=== PATIENT | male | born 1965 | race Caucasian/White ===

== ENCOUNTER 2016-06-27 10:50 | Emergency (ER) | payer MEDICAID ==
[2016-06-27] MEDS ORDERED: ONDANSETRON HCL IV 4 MG/2 ML VIAL IV ONE (11:09)
[2016-06-27] MEDS ORDERED: 0.9 % SODIUM CHLORIDE 1,000 ML BAG IV ONE (11:09)
--- NOTE | 2016-06-27 11:09 | Emergency Department Record ---
History of Present Illness - General Chief complaint: Nausea, Vomiting, Diarrhea Stated complaint: DIZZY,NAUSEA/DIARRHEA Time Seen by Provider: 06/27/16 11:02 Source: Patient Mode of Arrival: Ambulatory Limitations: No limitations - History of Present Illness Initial comments: 50 yo male presents with diarrhea 4 times since 5pm yesterday and now vomiting about 4 times since very early this morning. No fevers. No blood in either. He has some cramps that come and go. No flank pain or hematuria. No cough.. The last diarrhea was at 9am and the last vomiting was just prior to arrival. No recent travel, antibiotics or sick exposures that he is aware of at this time. MD complaint: Diarrhea, Nausea, Vomiting, Other (dizziness) Description of Vomiting: Watery Description of Diarrhea: Water Associated Abdominal Pain: Yes (cramps at times) Location: Diffuse Radiation: None Severity: Moderate Quality: Cramping Consistency: Intermittent Improves with: None Worsens with: Eating Associated Symptoms: Loss of appetite - Related Data Previous Rx's Medication Instructions Recorded Ondansetron [Zofran Odt] 4 mg PO Q8H #15 tab.rapdis 06/27/16 Allergies Allergy/AdvReac Type Severity Reaction Status Date / Time polyethylene glycol 3350 Allergy Severe ANAPHYLAXIS Verified 06/27/16 10:57 [From Miral[employer]] Review of Systems Constitutional: Denies: Chills, Fever, Malaise, Night sweats, Weakness Eyes: Denies: Eye discharge, Eye pain, Photophobia ENT: Denies: Congestion, Throat pain Respiratory: Denies: Cough, Dyspnea, Hemoptysis, Stridor Cardiovascular: Denies: Chest pain, Palpitations, Syncope Endocrine: Reports: Fatigue Gastrointestinal: Reports: Abdominal pain (cramps), Diarrhea, Nausea, Vomiting. Denies: Constipation, Hematemesis, Hematochezia, Melena Genitourinary: Denies: Dysuria, Frequency, Hematuria Musculoskeletal: Denies: Arthralgia, Back pain, Neck pain Skin: Denies: Bruising, Change in color, Rash Neurological: Denies: Confusion, Headache Psychiatric: Denies: Anxiety Hematological/Lymphatic: Denies: Blood Clots, Easy bleeding, Easy bruising, Swollen glands Past Medical History - SOCIAL HISTORY Smoking Status: Former smoker Drug Use Detail:: Marijuana - RESPIRATORY Hx Respiratory Disorders: No - CARDIOVASCULAR Hx Cardio Disorders: No - NEURO Hx Neuro Disorders: No - GI Hx GI Disorders: Yes Hx Abdominal Pain: Yes (20+ years) Hx Diverticulitis: Yes - Hx Genitourinary Disorders: No Hx Kidney Stones: Yes - ENDOCRINE Hx Endocrine Disorders: No Hx Diabetes: No Hx Thyroid Disease: No - MUSCULOSKELETAL Hx Musculoskeletal Disorders: No Hx Arthritis: (Having some trouble with R knuckle pain for aprox 6 months) - PSYCH Hx Psych Problems: No Hx Anxiety: Yes Hx Depression: Yes Comment:: "I think I have PTSD" - HEMATOLOGY/ONCOLOGY Hx Hematology/Oncology Disorders: No Family Medical History Family Hx Comment (NOT TO BE USED IN PLACE OF ITEMS BELOW): IBS Hx Cancer: Grandparents Hx Heart Disease: Mother, Grandparents Physical Exam - General General Appearance: Alert, Oriented x3, Cooperative, No acute distress Limitations: No limitations - Head Head exam: Normal inspection - Eye Eye exam: Normal appearance, PERRL. negative: Conjunctival injection, Periorbital swelling, Scleral icterus - ENT ENT exam: Mucous membranes dry, Normal orophraynx Ear exam: Normal external inspection Nasal Exam: Normal inspection Mouth exam: Normal external inspection, Tongue normal Teeth exam: Normal inspection. negative: Dental caries Throat exam: Normal inspection. negative: Tonsillar erythema, Tonsillar exudate - Neck Neck exam: Normal inspection, Full ROM. negative: Tenderness - Respiratory Respiratory exam: Normal lung sounds bilaterally. negative: Respiratory distress - Cardiovascular Cardiovascular Exam: Regular rate, Normal rhythm, Normal heart sounds - GI/Abdominal GI/Abdominal exam: Soft. negative: Diminished bowel sounds, Distended, Guarding , Rebound, Tenderness - Rectal Rectal exam: Deferred - exam: Deferred - Extremities Extremities exam: Normal inspection, Full ROM, Normal capillary refill. negative: Tenderness - Back Back exam: Reports: Normal inspection, Full ROM. Denies: Muscle spasm, Rash noted, Tenderness - Neurological Neurological exam: Alert, Normal gait, Oriented X3 - Psychiatric Psychiatric exam: Normal affect, Normal mood. negative: Anxious, Depressed - Skin Skin exam: Dry, Intact, Normal color, Warm Course - Reevaluation(s) Reevaluation #1: The labs were reviewed The CBC demonstrated WBC of 13 No acute changes to the CMP or Lipase His nausea is much better. No vomiting or diarrhea. He feels a little "achey" and requests ice chips. 06/27/16 11:50 Reevaluation #2: No vomiting or diarrhea His symptoms are well controlled His abdomen is very soft and non tender to deep palpation We discussed DC home, liquids, rest and return for recheck if any symptoms return He is to call his PCP Wednesday otherwise. 06/27/16 12:40 Medical Decision Making - Lab Data Result diagrams: 06/27/16 11:22 06/27/16 11:20 Disposition Disposition: Discharge Clinical Impression: Vomiting and diarrhea Disposition: Home, Self-Care Condition: (1) Good Instructions: Acute Nausea and Vomiting (ED), Acute Diarrhea (ED) Additional Instructions: Rest Stay well hydrated Zofran every 4 hours as needed for nausea Call your doctor on Wednesday for close follow up Return if worse, pain, uncontrolled vomiting or diarrhea over the week if any concerns. Prescriptions: Ondansetron [Zofran Odt] 4 mg PO Q8H #15 tab.rapdis Forms: Patient Portal Access Time of Disposition: 12:42
[2016-06-27 11:24] LABS: HEMATOCRIT 50.2 % (42.0-52.0); HEMOGLOBIN 16.5 gm/dl (14.0-18.0); MEAN CELL VOLUME 90.1 fl (81-97); MEAN CORPUSCULAR HEMOGLOBIN 29.6 pg (27-33); MEAN CORPUSCULAR HGB CONC 32.9 g/dl (32-36); MEAN PLATELET VOLUME 9.5 fl (7.4-10.4); PLATELET COUNT 363 K/uL (130-400); RED BLOOD COUNT 5.57 M/uL (4.40-5.70); RED CELL DISTRIBUTION WIDTH 13.4 % (11.5-14.5); WHITE BLOOD COUNT W/O DIFF 13.1 K/uL (4.2-12.2)
[2016-06-27 11:41] LABS: ALBUMIN 4.4 gm/dL (3.5-5.0); ALKALINE PHOSPHATASE 83 U/L (38-126); ALT/SGPT 41 U/L (21-72); AST/SGOT 22 U/L (17-59); BILIRUBIN,TOTAL 0.43 mg/dL (0.2-1.3); BLOOD UREA NITROGEN 19 mg/dL (9-20); CREATININE 0.9 mg/dL (0.66-1.25); EST GLOMERULAR FILTRATION RATE > 60 ml/min; GLUCOSE,RANDOM 146 mg/dL (70-110); LIPASE 90 U/L (23-300); TOTAL PROTEIN 7.4 gm/dL (6.3-8.2)
[2016-06-27] MEDS ORDERED: ACETAMINOPHEN 1,000 MG in SODIUM CHLORIDE 1 BAG IVPB ONE (11:49)
[2016-06-27] MEDS ORDERED: ONDANSETRON HCL IV 4 MG/2 ML VIAL IVP ONE (12:00)
[2016-06-27] MEDS ORDERED: PROMETHAZINE HCL 25 MG TABLET PO ONE (12:41)
[2016-06-27] MEDS ORDERED: ONDANSETRON 4 MG ODT TABLET SL ONE (12:41)
[2016-06-27 12:57] LABS: ANION GAP 12.5 (7-16); CARBON DIOXIDE 23.5 mmol/L (22-30)
== END 2016-06-27 12:50 | disposition home or self-care (01) ==
LOC: ER 10:50
DX: R11.2 Nausea with vomiting, unspecified (principal); R19.7 Diarrhea, unspecified
CPT/HCPCS: 99284 ×2; 96376; 96365; 96375; 96361; 83690; 80076; 80048; 85027; J2405; J7030; Q0170

== ENCOUNTER 2016-08-27 23:01 | Emergency (ER) | payer MEDICAID ==
[2016-08-27] MEDS ORDERED: KETOROLAC 30 MG/ML VIAL IVP ONE (23:24)
[2016-08-27] MEDS ORDERED: ONDANSETRON HCL IV 4 MG/2 ML VIAL IVP ONE (23:24)
--- NOTE | 2016-08-27 23:27 | Emergency Department Record ---
History of Present Illness - General Chief Complaint: Back Pain/Injury Stated Complaint: ABD PAIN,LOWER BACK PAIN Time Seen by Provider: 08/27/16 23:24 Source: Patient Mode of Arrival: Ambulatory Limitations: No limitations - History of Present Illness Initial Comments: 50 yo male presents to ED with a CC of right sided flank pain that began approximately 7 hours prior to arrival, intermittent in nature, and associated with nausea and vomiting symptoms. Patient denies fevers, chills, or recent illness, but reports similar symptoms with kidney stones previously. MD Complaint: Back pain Onset/Timin -: Hour(s) Similar Symptoms Previously: Yes Radiation: Abdomen Severity scale (1-10): 8 Quality: Sharp Consistency: Intermittent Improves With: None Context: History of kidney stones Associated Symptoms: Nausea/vomiting - Related Data Previous Rx's Medication Instructions Recorded Hydrocodone/Acetaminophen [[place] 1 tab PO Q6H PRN #15 tab 08/28/16 5mg/325mg] Tamsulosin HCl [Flomax] 0.4 mg PO DAILY #15 cap.er.24h 08/28/16 Allergies Allergy/AdvReac Type Severity Reaction Status Date / Time polyethylene glycol 3350 Allergy Severe ANAPHYLAXIS Verified 06/27/16 10:57 [From [employer]] Travel Screening - Travel/Exposure Within Last 30 Days Have you traveled within the last 30 days?: No - Travel Symptoms Symptom Screening: None Review of Systems Constitutional: Denies: Chills, Fever, Malaise, Night sweats Eyes: Denies: Eye discharge, Eye pain ENT: Denies: Congestion, Ear pain, Epistaxis Respiratory: Denies: Cough, Dyspnea Cardiovascular: Denies: Chest pain, Dyspnea on exertion Endocrine: Denies: Fatigue, Heat or cold intolerance Gastrointestinal: Reports: Abdominal pain. Denies: Nausea, Vomiting Genitourinary: Reports: Testicular pain. Denies: Hematuria, Incontinence, Retention Musculoskeletal: Reports: Back pain (right sided flank pain, radiates to the right testicle). Denies: Gout, Joint swelling Skin: Denies: Bruising, Change in color, Change in hair/nails, Rash Neurological: Denies: Abnormal gait, Confusion, Headache, Seizure Psychiatric: Denies: Anxiety Hematological/Lymphatic: Denies: Anemia, Blood Clots Past Medical History - SOCIAL HISTORY Smoking Status: Former smoker - RESPIRATORY Hx Respiratory Disorders: No - CARDIOVASCULAR Hx Cardio Disorders: No - NEURO Hx Neuro Disorders: No - GI Hx GI Disorders: Yes Hx Abdominal Pain: Yes (20+ years) Hx Diverticulitis: Yes - Hx Genitourinary Disorders: Yes Hx Kidney Stones: Yes - ENDOCRINE Hx Endocrine Disorders: No Hx Diabetes: No Hx Thyroid Disease: No - MUSCULOSKELETAL Hx Musculoskeletal Disorders: No Hx Arthritis: (Having some trouble with R knuckle pain for aprox 6 months) - PSYCH Hx Psych Problems: Yes Hx Anxiety: Yes Hx Depression: Yes Comment:: "I think I have PTSD" - HEMATOLOGY/ONCOLOGY Hx Hematology/Oncology Disorders: No Family Medical History Any Significant Family History?: Yes Family Hx Comment (NOT TO BE USED IN PLACE OF ITEMS BELOW): IBS Hx Cancer: Grandparents Hx Heart Disease: Mother, Grandparents Physical Exam - General General Appearance: Alert, Oriented x3, Cooperative, Moderate distress Limitations: No limitations - Head Head exam: Atraumatic, Normocephalic, Normal inspection Head exam detail: negative: Abrasion, Contusion, Costello's sign, General tenderness, Hematoma, Laceration - Eye Eye exam: Normal appearance. negative: Conjunctival injection, Periorbital swelling, Periorbital tenderness, Scleral icterus - ENT Ear exam: negative: Auricular hematoma, Auricular trauma Nasal Exam: negative: Active bleeding, Discharge, Dried blood Mouth exam: Tongue normal. negative: Drooling, Laceration, Tongue elevation - Neck Neck exam: Normal inspection. negative: Meningismus, Tenderness - Respiratory Respiratory exam: Normal lung sounds bilaterally. negative: Rales, Respiratory distress, Rhonchi, Stridor - Cardiovascular Cardiovascular Exam: Regular rate, Normal rhythm, Normal heart sounds - GI/Abdominal GI/Abdominal exam: Soft, Tenderness (TTP right lower quadrant). negative: Rebound, Rigid - Rectal Rectal exam: Deferred - exam: Deferred - Extremities Extremities exam: Normal inspection. negative: Calf tenderness, Pedal edema, Tenderness - Back Back exam: Reports: Other (no significant CVA tenderness on examination). Denies: CVA tenderness (R), CVA tenderness (L) - Neurological Neurological exam: Alert, Normal gait, Oriented X3 - Psychiatric Psychiatric exam: Normal affect, Normal mood - Skin Skin exam: Normal color. negative: Abrasion Type of lesion: negative: abrasion Course Vital Signs 08/27/16 23:09 Temperature 98.4 F Pulse Rate [ 53 L Pulse Ox Probe] Respiratory 16 Rate Blood Pressure 163/104 [Left Arm] Pulse Ox 96 - Reevaluation(s) Reevaluation #1: 08/27/16 23:59 Labs reviewed, BUN 23/Creatinine 1.3. Labs are otherwise grossly unremarkable for an acute process. Reevaluation #2: 08/28/16 00:15 CT Abdomen and Pelvis: mild right hydroneprosis, 4 mm calculus right ureter Reevaluation #3: 08/28/16 00:27 Patient reassessed, reports that his pain symptoms are much improved. UA sent to lab, will reassess. Reevaluation #4: 08/28/16 00:37 UA appears negative except for blood. Patient appears stable for discharge at this time. Medical Decision Making - Lab Data Result diagrams: 08/27/16 23:18 08/27/16 23:18 Disposition Disposition: Discharge Clinical Impression: Kidney stone on right side Disposition: Home, Self-Care Condition: (2) Stable Instructions: Kidney Stones (ED) Additional Instructions: Return to ED if your symptoms worsen or if you have any concerns. [place] and Flomax as directed. Follow-up with Dr. Mora in the [facility] next Wednesday. Prescriptions: Tamsulosin HCl [Flomax] 0.4 mg PO DAILY #15 cap.er.24h Hydrocodone/Acetaminophen [[place] 5mg/325mg] 1 tab PO Q6H PRN #15 tab PRN Reason: Pain - General Referrals: GAYLA RAMIREZ M.D. [MEDICAL DOCTOR] - [facility] [Provider Group] Forms: Patient Portal Access Time of Disposition: 00:38
[2016-08-27] MEDS ORDERED: 0.9 % SODIUM CHLORIDE 1000ML 1,000 ML IV SCH (23:30)
[2016-08-27 23:33] LABS: BASO % 0.3 % (0-6); EOS % 1.8 % (0-6); GRAN % 72.1 % (47-80); HEMATOCRIT 47.6 % (42.0-52.0); HEMOGLOBIN 15.3 gm/dl (14.0-18.0); LYMPH % 17.9 % (16-45); MEAN CELL VOLUME 91.4 fl (81-97); MEAN CORPUSCULAR HEMOGLOBIN 29.4 pg (27-33); MEAN CORPUSCULAR HGB CONC 32.1 g/dl (32-36); MEAN PLATELET VOLUME 9.6 fl (7.4-10.4); MONO % 7.9 % (0-9); PLATELET COUNT 306 K/uL (130-400); RED BLOOD COUNT 5.21 M/uL (4.40-5.70); RED CELL DISTRIBUTION WIDTH 13.3 % (11.5-14.5); WHITE BLOOD COUNT W/O DIFF 11.9 K/uL (4.2-12.2)
[2016-08-27 23:44] LABS: ALB/GLOB RATIO 1.4 (1.1-1.8); ALBUMIN 3.9 gm/dL (3.5-5.0); ALKALINE PHOSPHATASE 68 U/L (38-126); ALT/SGPT 37 U/L (21-72); ANION GAP 9.1 (7-16); AST/SGOT 23 U/L (17-59); BILIRUBIN,TOTAL 0.27 mg/dL (0.2-1.3); BLOOD UREA NITROGEN 23 mg/dL (9-20); CARBON DIOXIDE 24.9 mmol/L (22-30); CREATININE 1.3 mg/dL (0.66-1.25); EST GLOMERULAR FILTRATION RATE > 60 ml/min; GLUCOSE,RANDOM 130 mg/dL (70-110); TOTAL PROTEIN 6.7 gm/dL (6.3-8.2)
[2016-08-28] MEDS ORDERED: ONDANSETRON HCL IV 4 MG/2 ML VIAL IVP ONE (00:04)
[2016-08-28 00:27] LABS: URINE APPEARANCE SL CLOUDY; URINE BILIRUBIN NEGATIVE (NEGATIVE); URINE BLOOD LARGE (NEGATIVE); URINE COLOR YELLOW; URINE GLUCOSE (UA) NEGATIVE (NEGATIVE); URINE KETONE NEGATIVE (NEGATIVE); URINE LEUKOCYTE ESTERASE NEGATIVE (NEGATIVE); URINE NITRITE NEGATIVE (NEGATIVE); URINE PROTEIN TRACE (NEGATIVE); URINE UROBILINOGEN 0.2 E.U./dL (0.20 - 1.00)
[2016-08-28 00:41] LABS: URINE CALCIUM OXALATE CRYSTALS 3+ /hpf; URINE EPITHELIAL CELLS 0 - 2 (FEW); URINE WBC 0 - 2 (0-2/hpf)
[2016-08-28] MEDS ORDERED: HYDROCODONE/APAP 5/325MG TABLET PO ONE (00:41)
[2016-08-28] MEDS ORDERED: ONDANSETRON 4 MG ODT TABLET SL ONE (01:00)
== END 2016-08-28 01:08 | disposition home or self-care (01) ==
LOC: ER 23:01
DX: N13.2 Hydronephrosis with renal and ureteral calculous obstruction (principal); R11.2 Nausea with vomiting, unspecified; Z87.442 Personal history of urinary calculi
CPT/HCPCS: 99284 ×2; 96376; 96374; 96375; 96361; 85025; 80053; 81001; 74176; J1885; J2405 ×2; J7030

== ENCOUNTER 2017-04-05 05:54 | Emergency (ER) | payer MEDICAID ==
[2017-04-05] MEDS ORDERED: ONDANSETRON HCL IV 4 MG/2 ML VIAL IVP ONE ×2 (06:11→07:56)
[2017-04-05] MEDS ORDERED: 0.9 % SODIUM CHLORIDE 1,000 ML BAG IV ONE (06:11)
[2017-04-05] MEDS ORDERED: HYOSCYAMINE SULFATE ODT 0.125 MG TAB.SUBL SL ONE (06:12)
--- NOTE | 2017-04-05 06:17 | Emergency Department Record ---
History of Present Illness - General Chief Complaint: Abdominal Pain Stated Complaint: ABDOMINAL PAIN Time Seen by Provider: 04/05/17 06:12 Source: Patient Mode of Arrival: Ambulatory Limitations: No limitations - History of Present Illness Initial Comments: 51 yo male presents to ED for evaluation of abdominal pain, chills, and alternation in chills and hot flashes that began 5 hours ago. Patient reports vomiting x 1, denies change in stools. Patient reports a history of diverticulitis, denies previous abdominal pain surgery. Patient denies fever symptoms. MD Complaint: Abdominal pain Onset/Timin -: Hour(s) Location: Periumbilical Radiation: None Migration to: No migration Severity: Mild Consistency: Intermittent Improves With: Nothing Worsens With: Nothing Associated Symptoms: Chills, Nausea, Vomiting - Related Data Previous Rx's Medication Instructions Recorded Ciprofloxacin HCl [Cipro] 500 mg PO Q12HR #19 tablet 04/05/17 Metronidazole [Flagyl] 500 mg PO TID #29 tablet 04/05/17 Allergies Allergy/AdvReac Type Severity Reaction Status Date / Time polyethylene glycol 3350 Allergy Severe ANAPHYLAXIS Verified 04/05/17 06:00 [From [email or web address]] Travel Screening - Travel/Exposure Within Last 30 Days Have you traveled within the last 30 days?: No - Travel/Exposure Within Last Year Have you traveled outside the [place] in the last year?: No - Additonal Travel Details Have you been exposed to anyone with a communicable illness?: No - Travel Symptoms Symptom Screening: None Review of Systems Constitutional: Reports: Chills. Denies: Fever, Malaise, Night sweats Eyes: Denies: Eye discharge, Eye pain ENT: Denies: Congestion, Ear pain, Epistaxis Respiratory: Denies: Cough, Dyspnea Cardiovascular: Denies: Chest pain, Dyspnea on exertion Endocrine: Denies: Fatigue, Heat or cold intolerance Gastrointestinal: Reports: Abdominal pain, Nausea, Vomiting (x 1). Denies: Constipation Genitourinary: Denies: Incontinence, Retention Musculoskeletal: Denies: Arthralgia, Back pain, Gout, Joint swelling Skin: Denies: Bruising, Change in color Neurological: Denies: Abnormal gait, Confusion, Headache, Seizure Psychiatric: Denies: Anxiety Hematological/Lymphatic: Denies: Anemia, Blood Clots Past Medical History - SOCIAL HISTORY Smoking Status: Former smoker Alcohol Use: None Drug Use: None - RESPIRATORY Hx Respiratory Disorders: No - CARDIOVASCULAR Hx Cardio Disorders: No - NEURO Hx Neuro Disorders: No - GI Hx GI Disorders: Yes Hx Abdominal Pain: Yes (20+ years) Hx Diverticulitis: Yes - Hx Genitourinary Disorders: Yes Hx Kidney Stones: Yes - ENDOCRINE Hx Endocrine Disorders: No Hx Diabetes: No Hx Thyroid Disease: No - MUSCULOSKELETAL Hx Musculoskeletal Disorders: Yes Hx Arthritis: (Having some trouble with R knuckle pain for aprox 6 months) - PSYCH Hx Psych Problems: Yes Hx Anxiety: Yes Hx Depression: Yes Comment:: "I think I have PTSD" - HEMATOLOGY/ONCOLOGY Hx Hematology/Oncology Disorders: No Family Medical History Any Significant Family History?: No Family Hx Comment (NOT TO BE USED IN PLACE OF ITEMS BELOW): IBS Hx Cancer: Grandparents Hx Heart Disease: Mother, Grandparents Physical Exam - General General Appearance: Alert, Oriented x3, Cooperative, Mild distress Limitations: No limitations - Head Head exam: Atraumatic, Normocephalic, Normal inspection Head exam detail: negative: Abrasion, Contusion, Costello's sign, General tenderness, Hematoma, Laceration - Eye Eye exam: Normal appearance. negative: Conjunctival injection, Periorbital swelling, Periorbital tenderness, Scleral icterus - ENT Ear exam: negative: Auricular hematoma, Auricular trauma Nasal Exam: negative: Active bleeding, Discharge, Dried blood, Foreign body Mouth exam: negative: Drooling, Laceration, Tongue elevation - Neck Neck exam: Normal inspection. negative: Meningismus, Tenderness - Respiratory Respiratory exam: Normal lung sounds bilaterally. negative: Rales, Respiratory distress, Rhonchi, Stridor - Cardiovascular Cardiovascular Exam: Regular rate, Normal rhythm, Normal heart sounds - GI/Abdominal GI/Abdominal exam: Soft, Tenderness (MIld TTP suprapubic region, no rebound, guarding, or peritoneal signs on examination.). negative: Rebound, Rigid - Rectal Rectal exam: Deferred - exam: Deferred - Extremities Extremities exam: Normal inspection. negative: Pedal edema, Tenderness - Back Back exam: Reports: Normal inspection. Denies: CVA tenderness (R), CVA tenderness (L) - Neurological Neurological exam: Alert, Normal gait, Oriented X3 - Psychiatric Psychiatric exam: Normal affect, Normal mood - Skin Skin exam: Normal color. negative: Abrasion Type of lesion: negative: abrasion Course Vital Signs 04/05/17 06:00 Temperature 97.7 F Pulse Rate 63 Respiratory 32 H Rate Blood Pressure 123/96 Pulse Ox 99 - Reevaluation(s) Reevaluation #1: 04/05/17 06:49 Labs reviewed, WBC 13.5, labs are otherwise grossly unremarkable for an acute process. UA pending at this time. Reevaluation #2: 04/05/17 07:13 Patient is back from CT imaging, reports that his hot/cold symptoms continue to bother him the most. Will administer Valium IV for his continued symptoms and re-evaluate. Reevaluation #3: 04/05/17 07:18 CT Abdomen/Pelvis: Colonic wall thickening of the sigmoid colon, no adjacent stranding, no obstruction. Patient was updated on his CT imaging results, denies previous history of crohn' s or ulcerative colitis. Will treat for probable diverticulitis vs. sigmoid colitis with flagyl and cipro with instructions to follow-up with his PCP in 3- 5 days as directed. Reevaluation #4: 04/05/17 07:57 patient reassessed, resting more calmly and reports improvement in his symptoms. Patient is awaiting a ride at this time, repeat antibiotics and anti- emetics ordered as he vomited up his antibiotics. Medical Decision Making - Lab Data Result diagrams: 04/05/17 06:05 04/05/17 06:05 Disposition Disposition: Discharge Clinical Impression: Diverticulitis Disposition: Home, Self-Care Condition: (2) Stable Instructions: Abdominal Pain (ED) Additional Instructions: Return to ED if your symptoms worsen or if you have any concerns. Cipro and Flagyl as directed. Follow-up with your family doctor in 3-5 days as directed. Prescriptions: Ciprofloxacin HCl [Cipro] 500 mg PO Q12HR #19 tablet Metronidazole [Flagyl] 500 mg PO TID #29 tablet Forms: Patient Portal Access Time of Disposition: 07:21 Quality - Quality Measures Quality Measures: N/A - Blood Pressure Screening Does Patient Have Any of the Following: No Blood Pressure Classification: Hypertensive Reading Systolic Measurement: 123 Diastolic Measurement: 96 Screening for High Blood Pressure: < First Hypertensive BP, F/U Documented > [ [id number]] First Hypertensive Follow-up Interventions: Referral to alternative/primary care provider.
[2017-04-05 06:21] LABS: BASO % 0.4 % (0-6); EOS % 1.3 % (0-6); GRAN % 76.7 % (47-80); HEMATOCRIT 49.7 % (42.0-52.0); HEMOGLOBIN 16.5 gm/dl (14.0-18.0); LYMPH % 14.5 % (16-45); MEAN CORPUSCULAR HEMOGLOBIN 29.9 pg (27-33); MEAN CORPUSCULAR HGB CONC 33.2 g/dl (32-36); MEAN PLATELET VOLUME 9.8 fl (7.4-10.4); MONO % 7.1 % (0-9); PLATELET COUNT 370 K/uL (130-400); RED BLOOD COUNT 5.52 M/uL (4.40-5.70); RED CELL DISTRIBUTION WIDTH 13.1 % (11.5-14.5); WHITE BLOOD COUNT W/O DIFF 13.5 K/uL (4.2-12.2)
[2017-04-05 06:33] LABS: BLOOD UREA NITROGEN 18 mg/dL (6-20); CREATININE 1.1 mg/dL (0.7-1.2); EST GLOMERULAR FILTRATION RATE > 60 mL/min
[2017-04-05 06:34] LABS: TOTAL PROTEIN 7.5 g/dL (6.6-8.7)
[2017-04-05 06:36] LABS: GLUCOSE,RANDOM 139 mg/dL (74-109)
[2017-04-05 06:38] LABS: ALB/GLOB RATIO 1.3 (1.1-1.8); ALBUMIN 4.3 g/dL (4.0-5.0); ALKALINE PHOSPHATASE 71 U/L (40-129); ALT/SGPT 18 U/L (<41); AST/SGOT 18 U/L (10.0-50.0)
[2017-04-05 06:39] LABS: LIPASE 30 U/L (13-60)
[2017-04-05 07:11] LABS: URINE APPEARANCE CLEAR; URINE BILIRUBIN NEGATIVE (NEGATIVE); URINE BLOOD SMALL (NEGATIVE); URINE COLOR YELLOW; URINE GLUCOSE (UA) NEGATIVE (NEGATIVE); URINE KETONE 15 mg/dL (NEGATIVE); URINE LEUKOCYTE ESTERASE NEGATIVE (NEGATIVE); URINE NITRITE NEGATIVE (NEGATIVE); URINE PROTEIN NEGATIVE (NEGATIVE); URINE UROBILINOGEN 0.2 E.U./dL (0.20 - 1.00)
[2017-04-05] MEDS ORDERED: DIAZEPAM 5 MG/1 ML TUBX IVP ONE (07:13)
[2017-04-05] MEDS ORDERED: CIPROFLOXACIN HCL 500 MG TABLET PO ONE ×2 (07:18→07:56)
[2017-04-05] MEDS ORDERED: METRONIDAZOLE 250 MG TABLET PO ONE ×2 (07:18→07:56)
[2017-04-05 07:27] LABS: URINE EPITHELIAL CELLS 0 - 2 (FEW); URINE WBC 0 - 2 (0-2/hpf)
--- NOTE | 2017-04-05 08:37 | CT SCAN REPORT ---
EXAM: CT OF THE ABDOMEN AND PELVIS WITH CONTRAST HISTORY: EPIGASTRIC PAIN, VOMITING. TECHNIQUE: Sequential axial images were obtained from the diaphragms through the ischiorectal fossa after intravenous administration of 100 ml of Omnipaque 300 contrast material. FINDINGS: The visualized lung bases appear normal. The liver appears normal. The gallbladder, pancreas and spleen appear normal. No gross abnormalities within the stomach. There is a small sliding type hiatal hernia. The adrenal glands and kidneys appear normal. No evidence for bowel obstruction. There is incomplete distention of the colon. The appendix is visualized and appears normal. There is sigmoid colon diverticulosis. No evidence of diverticulitis. The urinary bladder appears normal. The osseous structures are normal. IMPRESSION: 1. INCOMPLETE DISTENTION OF THE COLON. THERE IS SIGMOID COLON DIVERTICULOSIS. NO EVIDENCE OF DIVERTICULITIS. 2. SMALL SLIDING TYPE HIATAL HERNIA. JOB NUMBER: [id number] [facility]
== END 2017-04-05 09:01 | disposition home or self-care (01) ==
LOC: ER 05:54
DX: K57.92 Diverticulitis of intestine, part unspecified, without perforation or abscess without bleeding (principal); R11.2 Nausea with vomiting, unspecified
CPT/HCPCS: 99284 ×2; 96376; 96374; 96375; 83690; 85025; 80053; 81001; 74177; Q9967; J1980; J2405; J3360; J7030

== ENCOUNTER 2018-03-26 18:15 | Emergency (ER) | payer MEDICAID ==
--- NOTE | 2018-03-26 18:28 | Emergency Department Record ---
History of Present Illness - General Chief complaint: Cold Stated complaint: CHEST CONGESTION Time Seen by Provider: 03/26/18 18:23 Source: Patient Mode of Arrival: Ambulatory Limitations: No limitations - History of Present Illness Initial comments: 52 yo male presents to ED for residual cough symptoms that have been present for 4-5 weeks. Patient report an initial URI for 4-5 days several weeks ago that "ran it's course", however the cough has been lingering. Patient reports that his cough symptoms have worsened over the past 2 days, worsens when laying flat. Patient denies history of asthma/COPD previously, denies previous heart problems. Patient denies recent fevers, chills, or shortness of breath symptoms. MD complaint: Other Onset/Timin -: Week(s) Severity: Moderate Severity scale (1-10): 3 Consistency: Constant, Intermittent Improves with: None Worsens with: Other (laying supine) Associated Symptoms: Cough - Related Data Previous Rx's Medication Instructions Recorded Prednisone [Prednisone 20Mg] 20 mg PO BID #15 tab 03/26/18 Allergies Allergy/AdvReac Type Severity Reaction Status Date / Time polyethylene glycol 3350 Allergy Severe ANAPHYLAXIS Verified 03/26/18 18:23 [From Miralax] Travel Screening - Travel/Exposure Within Last 30 Days Have you traveled within the last 30 days?: No - Travel/Exposure Within Last Year Have you traveled outside the [place] in the last year?: No - Additonal Travel Details Have you been exposed to anyone with a communicable illness?: No - Travel Symptoms Symptom Screening: None Review of Systems Constitutional: Denies: Chills, Fever, Malaise, Night sweats Eyes: Denies: Eye discharge ENT: Reports: Congestion. Denies: Ear pain, Epistaxis Respiratory: Reports: Cough. Denies: Dyspnea Cardiovascular: Denies: Chest pain, Dyspnea on exertion Endocrine: Denies: Fatigue Gastrointestinal: Denies: Abdominal pain, Nausea, Vomiting Genitourinary: Denies: Incontinence, Retention Musculoskeletal: Denies: Arthralgia, Back pain Skin: Denies: Bruising, Change in color Neurological: Denies: Abnormal gait, Confusion, Headache, Seizure Psychiatric: Denies: Anxiety Hematological/Lymphatic: Denies: Anemia, Blood Clots Past Medical History - SOCIAL HISTORY Smoking Status: Former smoker Alcohol Use: None Drug Use: None - RESPIRATORY Hx Respiratory Disorders: No - CARDIOVASCULAR Hx Cardio Disorders: No - NEURO Hx Neuro Disorders: No - GI Hx GI Disorders: Yes Hx Abdominal Pain: Yes (20+ years) Hx Diverticulitis: Yes - Hx Genitourinary Disorders: Yes Hx Kidney Stones: Yes - ENDOCRINE Hx Endocrine Disorders: No Hx Diabetes: No Hx Thyroid Disease: No - MUSCULOSKELETAL Hx Musculoskeletal Disorders: Yes Hx Arthritis: (Having some trouble with R knuckle pain for aprox 6 months) - PSYCH Hx Psych Problems: Yes Hx Anxiety: Yes Hx Depression: Yes Comment:: "I think I have PTSD" - HEMATOLOGY/ONCOLOGY Hx Hematology/Oncology Disorders: No Family Medical History Any Significant Family History?: Yes Family Hx Comment (NOT TO BE USED IN PLACE OF ITEMS BELOW): IBS Hx Cancer: Grandparents Hx Heart Disease: Mother, Grandparents Physical Exam - General General Appearance: Alert, Oriented x3, Cooperative, Mild distress Limitations: No limitations - Head Head exam: Atraumatic, Normocephalic, Normal inspection Head exam detail: negative: Abrasion, Contusion, Costello's sign, General tenderness, Hematoma, Laceration - Eye Eye exam: Normal appearance. negative: Conjunctival injection, Periorbital swelling, Periorbital tenderness, Scleral icterus - ENT Ear exam: negative: Auricular hematoma, Auricular trauma Nasal Exam: negative: Active bleeding, Discharge, Dried blood, Foreign body Mouth exam: negative: Drooling, Laceration, Muffled voice, Tongue elevation - Neck Neck exam: Normal inspection. negative: Meningismus, Tenderness - Respiratory Respiratory exam: Normal lung sounds bilaterally. negative: Rales, Respiratory distress, Rhonchi, Stridor - Cardiovascular Cardiovascular Exam: Regular rate, Normal rhythm, Normal heart sounds - GI/Abdominal GI/Abdominal exam: Soft. negative: Rebound, Rigid, Tenderness - Rectal Rectal exam: Deferred - exam: Deferred - Extremities Extremities exam: Normal inspection. negative: Calf tenderness, Pedal edema, Tenderness - Back Back exam: Denies: CVA tenderness (R), CVA tenderness (L) - Neurological Neurological exam: Alert, Normal gait, Oriented X3 - Psychiatric Psychiatric exam: Normal affect, Normal mood - Skin Skin exam: Normal color. negative: Abrasion Type of lesion: negative: abrasion Course Vital Signs 03/26/18 18:18 Temperature 98.4 F Pulse Rate 74 Respiratory 20 Rate Blood Pressure 141/78 Pulse Ox 98 - Reevaluation(s) Reevaluation #1: 03/26/18 18:43 CXR: No acute process Patient was updated on his CXR result, negative for an acute process. Will initiate treatment with Prednisone for probable residual lung inflammation and bronchitis. Disposition Disposition: Discharge Clinical Impression: Bronchitis Disposition: Home, Self-Care Condition: (2) Stable Instructions: Acute Bronchitis (ED) Additional Instructions: Return to ED if your symptoms worsen or if you have any concerns. Prednisone as directed. Follow-up with your family doctor in 3-5 days as directed. Prescriptions: Prednisone [Prednisone 20Mg] 20 mg PO BID #15 tab Forms: Patient Portal Access Time of Disposition: 18:45 Quality - Quality Measures Quality Measures: N/A - Blood Pressure Screening Does Patient Have Any of the Following: No Blood Pressure Classification: Hypertensive Reading Systolic Measurement: 141 Diastolic Measurement: 78 Screening for High Blood Pressure: < First Hypertensive BP, F/U Documented > [ G8950] First Hypertensive Follow-up Interventions: Referral to alternative/primary care provider.
[2018-03-26] MEDS ORDERED: PREDNISONE 20 MG TAB PO ONE (18:45)
--- NOTE | 2018-03-28 08:38 | RADIOLOGY REPORT ---
EXAM: CHEST, TWO VIEWS HISTORY: PATIENT HAS COUGH. TECHNIQUE: Two views of the chest are provided without comparison examinations. FINDINGS: The cardiomediastinal silhouette is within normal limits for size and contour. The trice appear unremarkable. There is no radiographic evidence of a focal infiltrate or pleural effusion. No pneumothorax is noted. IMPRESSION: NO RADIOGRAPHIC EVIDENCE OF AN ACUTE INTRATHORACIC PROCESS. JOB NUMBER: [id number] MTDD
== END 2018-03-26 19:09 | disposition home or self-care (01) ==
LOC: ER 18:15
DX: J20.9 Acute bronchitis, unspecified (principal); Z87.891 Personal history of nicotine dependence
CPT/HCPCS: 99283 ×2; 71046; J7512

== ENCOUNTER 2018-06-05 09:27 | Emergency (ER) | payer MEDICAID ==
--- NOTE | 2018-06-05 09:43 | Emergency Department Record ---
History of Present Illness - General Chief Complaint: Abdominal Pain Stated Complaint: STOMACH PAIN Time Seen by Provider: 06/05/18 09:40 Source: Patient, RN notes reviewed Mode of Arrival: Ambulatory - History of Present Illness Initial Comments: abd pain at 3 am today and vomiting times 6-7 and diarrhea times 2 since 3 am and yesterday no symptoms and he ate at [email or web address] last night. Patient is located in the epigastric pain and he has a history of diverticulitis Onset/Timin -: Days(s) Location: Periumbilical, Suprapubic Severity: Moderate Severity scale (1-10): 7 Quality: Aching, Cramping Improves With: Nothing Worsens With: Nothing - Related Data Previous Rx's Medication Instructions Recorded Ondansetron HCl [Zofran] 4 mg PO Q6HR #10 tablet 06/05/18 Sucralfate [Carafate] 1 gm PO QID #30 tablet 06/05/18 Allergies Allergy/AdvReac Type Severity Reaction Status Date / Time polyethylene glycol 3350 Allergy Severe ANAPHYLAXIS Verified 06/05/18 09:38 [From [employer]] Travel Screening - Travel/Exposure Within Last 30 Days Have you traveled within the last 30 days?: No - Travel/Exposure Within Last Year Have you traveled outside the [place] in the last year?: No - Additonal Travel Details Have you been exposed to anyone with a communicable illness?: No - Travel Symptoms Symptom Screening: None Review of Systems Reviewed: No additional complaints except as noted below Constitutional: Reports: As per HPI. Denies: Chills, Fever, Malaise, Night sweats, Weakness, Weight change Eyes: Reports: As per HPI. Denies: Eye discharge, Eye pain, Photophobia, Vision change ENT: Reports: As per HPI. Denies: Congestion, Dental pain, Ear pain, Epistaxis , Hearing loss, Throat pain Respiratory: Reports: As per HPI. Denies: Cough, Dyspnea, Hemoptysis, Stridor, Wheezes Cardiovascular: Reports: As per HPI. Denies: Arrhythmia, Chest pain, Dyspnea on exertion, Edema, Murmurs, Orthopnea, Palpitations, Paroxysmal nocturnal dyspnea, Rheumatic Fever, Syncope Endocrine: Reports: As per HPI. Denies: Fatigue, Heat or cold intolerance, Polydipsia, Polyuria Gastrointestinal: Reports: As per HPI. Denies: Abdominal pain, Constipation, Diarrhea, Hematemesis, Hematochezia, Melena, Nausea, Vomiting Genitourinary: Reports: As per HPI. Denies: Dysuria, Frequency, Hematuria, Incontinence, Retention, Testicular pain, Testicular mass, Urgency Musculoskeletal: Reports: As per HPI. Denies: Arthralgia, Back pain, Gout, Joint swelling, Myalgia, Neck pain Skin: Reports: As per HPI. Denies: Bruising, Change in color, Change in hair/ nails, Lesions, Pruritus, Rash Neurological: Reports: As per HPI. Denies: Abnormal gait, Confusion, Headache, Numbness, Paresthesias, Seizure, Tingling, Tremors, Vertigo, Weakness Psychiatric: Reports: As per HPI. Denies: Anxiety, Auditory hallucinations, Depression, Homicidal thoughts, Suicidal thoughts, Visual hallucinations Hematological/Lymphatic: Reports: As per HPI. Denies: Anemia, Blood Clots, Easy bleeding, Easy bruising, Swollen glands Past Medical History - SOCIAL HISTORY Smoking Status: Former smoker Alcohol Use: None Drug Use: None - RESPIRATORY Hx Respiratory Disorders: No - CARDIOVASCULAR Hx Cardio Disorders: No - NEURO Hx Neuro Disorders: No - GI Hx GI Disorders: Yes Hx Abdominal Pain: Yes (20+ years) Hx Diverticulitis: Yes Hx Irritable Bowel: Yes - Hx Genitourinary Disorders: Yes Hx Kidney Stones: Yes - ENDOCRINE Hx Endocrine Disorders: No Hx Diabetes: No Hx Thyroid Disease: No - MUSCULOSKELETAL Hx Musculoskeletal Disorders: Yes Hx Arthritis: (Having some trouble with R knuckle pain for aprox 6 months) - PSYCH Hx Psych Problems: Yes Hx Anxiety: Yes Hx Depression: Yes Comment:: "I think I have PTSD" - HEMATOLOGY/ONCOLOGY Hx Hematology/Oncology Disorders: No Family Medical History Any Significant Family History?: Yes Family Hx Comment (NOT TO BE USED IN PLACE OF ITEMS BELOW): IBS Hx Cancer: Grandparents Hx Heart Disease: Mother, Grandparents Physical Exam - General General Appearance: Alert, Oriented x3, Cooperative, Moderate distress - Head Head exam: Normal inspection - Eye Eye exam: Normal appearance, PERRL Pupils: Normal accommodation - ENT ENT exam: Normal exam, Mucous membranes moist, Normal external ear exam, Normal orophraynx, TM's normal bilaterally Ear exam: Normal external inspection. negative: External canal tenderness Nasal Exam: Normal inspection. negative: Discharge, Sinus tenderness Mouth exam: Normal external inspection, Tongue normal Teeth exam: Normal inspection. negative: Dental caries Throat exam: Normal inspection. negative: Tonsillar erythema, Tonsillar exudate - Neck Neck exam: Normal inspection, Full ROM. negative: Tenderness - Respiratory Respiratory exam: Normal lung sounds bilaterally. negative: Respiratory distress - Cardiovascular Cardiovascular Exam: Regular rate, Normal rhythm, Normal heart sounds - GI/Abdominal GI/Abdominal exam: Soft, Normal bowel sounds, Tenderness (epigastric pain). negative: Distended, Guarding - Rectal Rectal exam: Deferred - exam: Deferred - Extremities Extremities exam: Normal inspection, Full ROM, Normal capillary refill. negative: Tenderness - Back Back exam: Reports: Normal inspection, Full ROM. Denies: Muscle spasm, Rash noted, Tenderness - Neurological Neurological exam: Alert, Normal gait, Oriented X3, Reflexes normal - Psychiatric Psychiatric exam: Normal affect, Normal mood - Skin Skin exam: Dry, Intact, Normal color, Warm Course Vital Signs 06/05/18 09:29 Temperature 97.8 F Pulse Rate 58 L Respiratory 20 Rate Blood Pressure 152/105 Pulse Ox 99 patient is feeling better - Reevaluation(s) Reevaluation #1: feels alot better and nausea is better. soft abd and no quarding or rebound 06/05/18 10:57 06/05/18 10:57 Medical Decision Making - Data Complexity MDM Data: Labs Ordered and/or Reviewed (wbc 18,400) - Lab Data Result diagrams: 06/05/18 09:40 06/05/18 09:40 Disposition Clinical Impression: Dehydration, Vomiting and diarrhea, Gastroenteritis Abdominal pain Qualifiers: Abdominal location: epigastric Qualified Code(s): R10.13 - Epigastric pain Disposition: Home, Self-Care Condition: (1) Good Instructions: Gastroenteritis (ED) Additional Instructions: nothing to eat or drink for 3 hours and than clear liquids for 24 hours than start bland foods Prescriptions: Ondansetron HCl [Zofran] 4 mg PO Q6HR #10 tablet Sucralfate [Carafate] 1 gm PO QID #30 tablet Forms: Patient Portal Access Time of Disposition: 11:52 Quality - Quality Measures Quality Measures: N/A - Blood Pressure Screening Does Patient Have Any of the Following: No Blood Pressure Classification: Hypertensive Reading Systolic Measurement: 152 Diastolic Measurement: 105 Screening for High Blood Pressure: < Pre-Hypertensive BP, F/U Documented > [ G8950] Pre-Hypertensive Follow-up Interventions: Referral to alternative/primary care provider.
[2018-06-05] MEDS ORDERED: 0.9 % SODIUM CHLORIDE 1,000 ML BAG IV ONE (09:48)
[2018-06-05] MEDS ORDERED: ONDANSETRON HCL IV 4 MG/2 ML VIAL IV ONE (09:48)
[2018-06-05 09:58] LABS: HEMATOCRIT 49.7 % (42.0-52.0); HEMOGLOBIN 16.6 gm/dl (14.0-18.0); MEAN CELL VOLUME 90.2 fl (81-97); MEAN CORPUSCULAR HEMOGLOBIN 30.1 pg (27-33); MEAN CORPUSCULAR HGB CONC 33.4 g/dl (32-36); MEAN PLATELET VOLUME 9.7 fl (7.4-10.4); PLATELET COUNT 350 K/uL (130-400); RED BLOOD COUNT 5.51 M/uL (4.40-5.70); RED CELL DISTRIBUTION WIDTH 13.5 % (11.5-14.5); WHITE BLOOD COUNT W/O DIFF 18.4 K/uL (4.2-12.2)
[2018-06-05] MEDS ORDERED: HYDROMORPHONE HCL 2 MG/ML VIAL IVP ONE (10:08)
[2018-06-05] MEDS ORDERED: PROMETHAZINE HCL 25 MG in 0.9 % SODIUM CHLORIDE 100ML 100 ML IVPB ONE (10:08)
[2018-06-05 10:12] LABS: BLOOD UREA NITROGEN 22 mg/dL (6-20); EST GLOMERULAR FILTRATION RATE > 60 mL/min
[2018-06-05 10:13] LABS: LIPASE 26 U/L (13-60); TOTAL PROTEIN 7.8 g/dL (6.6-8.7)
[2018-06-05 10:15] LABS: GLUCOSE,RANDOM 179 mg/dL (74-109)
[2018-06-05 10:18] LABS: ALBUMIN 4.4 g/dL (4.0-5.0); ALKALINE PHOSPHATASE 79 U/L (55-149); ALT/SGPT 22 U/L (<41); AST/SGOT 20 U/L (10.0-50.0)
[2018-06-05 10:22] LABS: BILIRUBIN,DIRECT < 0.2 mg/dL (0-0.3)
[2018-06-05] MEDS ORDERED: 0.9 % SODIUM CHLORIDE 1000ML 1,000 ML IV ONE (10:59)
[2018-06-05 12:11] LABS: URINE APPEARANCE CLEAR; URINE BILIRUBIN NEGATIVE (NEGATIVE); URINE BLOOD TRACE-I (NEGATIVE); URINE COLOR YELLOW; URINE KETONE TRACE (NEGATIVE); URINE LEUKOCYTE ESTERASE NEGATIVE (NEGATIVE); URINE NITRITE NEGATIVE (NEGATIVE); URINE PROTEIN NEGATIVE (NEGATIVE); URINE UROBILINOGEN 0.2 E.U./dL (0.20 - 1.00)
[2018-06-05 12:20] LABS: URINE RBC 0 - 2 (NONE SEEN); URINE SQUAMOUS EPITHELIAL CELL 0 - 2 /hpf; URINE WBC 0 - 2 (0-2/hpf)
== END 2018-06-05 12:26 | disposition home or self-care (01) ==
LOC: ER 09:27
DX: K52.9 Noninfective gastroenteritis and colitis, unspecified (principal); R86.0 Abnormal level of enzymes in specimens from male genital organs; R11.2 Nausea with vomiting, unspecified; R19.7 Diarrhea, unspecified; R10.13 Epigastric pain; Z87.891 Personal history of nicotine dependence
CPT/HCPCS: 80048; 80076; 81001; 83690; 85027; 87425; 87427; 96361; 96374; 96375; 99284; J2405; J2550; J7030

== ENCOUNTER 2018-06-07 01:08 | Emergency (ER) | payer MEDICAID ==
[2018-06-07] MEDS ORDERED: CLINDAMYCIN 150 MG CAP PO ONE (01:14)
--- NOTE | 2018-06-07 01:16 | Emergency Department Record ---
History of Present Illness - General Chief Complaint: Wound, check Stated Complaint: FINGER INFECTION Time Seen by Provider: 06/07/18 01:10 Source: Patient Mode of arrival: Ambulatory Limitations: No limitations - History of Present Illness Initial Comments: 52 yo male presents to ED for evaluation of swelling and pain to the right index finger that began this evening. Patient reports that he removed a sliver from the lateral aspect of the finger while at work 5 days ago, reports the finger initially swelled but improved over the past 4 days until this evening. Patient reports that he removed the splinter in its entirety without breaking, denies discharge from the wound. Patient denies fevers, chills, or redness to the area. Patient denies pain with flexion/extension but does report "it feels tight". MD Complaint: Other Onset/Timin -: Days(s) Initial Visit For: Other - Related Data Previous Rx's Medication Instructions Recorded Ondansetron HCl [Zofran] 4 mg PO Q6HR #10 tablet 06/05/18 Sucralfate [Carafate] 1 gm PO QID #30 tablet 06/05/18 Clindamycin HCl 300 mg PO QID #27 capsule 06/07/18 Allergies Allergy/AdvReac Type Severity Reaction Status Date / Time polyethylene glycol 3350 Allergy Severe ANAPHYLAXIS Verified 06/05/18 09:38 [From Miralax] Review of Systems Constitutional: Denies: Chills, Fever, Malaise, Night sweats Eyes: Denies: Eye discharge, Eye pain ENT: Denies: Congestion, Ear pain, Epistaxis Respiratory: Denies: Cough, Dyspnea Cardiovascular: Denies: Chest pain, Dyspnea on exertion Endocrine: Denies: Fatigue, Heat or cold intolerance Gastrointestinal: Denies: Abdominal pain, Nausea, Vomiting Genitourinary: Denies: Incontinence, Retention Musculoskeletal: Denies: Arthralgia, Back pain, Gout, Joint swelling Skin: Reports: Other (Swelling, pain). Denies: Bruising, Change in color, Change in hair/nails, Lesions Neurological: Denies: Abnormal gait, Confusion, Headache, Seizure Psychiatric: Denies: Anxiety Hematological/Lymphatic: Denies: Anemia, Blood Clots Past Medical History - SOCIAL HISTORY Smoking Status: Former smoker Drug Use: None - RESPIRATORY Hx Respiratory Disorders: No - CARDIOVASCULAR Hx Cardio Disorders: No - NEURO Hx Neuro Disorders: No - GI Hx GI Disorders: Yes Hx Abdominal Pain: Yes (20+ years) Hx Diverticulitis: Yes Hx Irritable Bowel: Yes - Hx Genitourinary Disorders: Yes Hx Kidney Stones: Yes - ENDOCRINE Hx Endocrine Disorders: No Hx Diabetes: No Hx Thyroid Disease: No - MUSCULOSKELETAL Hx Musculoskeletal Disorders: Yes Hx Arthritis: (Having some trouble with R knuckle pain for aprox 6 months) - PSYCH Hx Psych Problems: Yes Hx Anxiety: Yes Hx Depression: Yes Comment:: "I think I have PTSD" - HEMATOLOGY/ONCOLOGY Hx Hematology/Oncology Disorders: No Family Medical History Family Hx Comment (NOT TO BE USED IN PLACE OF ITEMS BELOW): IBS Hx Cancer: Grandparents Hx Heart Disease: Mother, Grandparents Physical Exam - General General Appearance: Alert, Oriented x3, Cooperative, Mild distress Limitations: No limitations - Head Head exam: Atraumatic, Normocephalic, Normal inspection Head exam detail: negative: Abrasion, Contusion, Costello's sign, General tenderness, Hematoma, Laceration - Eye Eye exam: Normal appearance. negative: Conjunctival injection, Periorbital swelling, Periorbital tenderness, Scleral icterus - ENT Ear exam: negative: Auricular hematoma, Auricular trauma Nasal Exam: negative: Active bleeding, Discharge, Dried blood, Foreign body Mouth exam: negative: Drooling, Laceration, Muffled voice, Tongue elevation - Neck Neck exam: Normal inspection. negative: Meningismus, Tenderness - Respiratory Respiratory exam: Normal lung sounds bilaterally. negative: Rales, Respiratory distress, Rhonchi, Stridor - Cardiovascular Cardiovascular Exam: Regular rate, Normal rhythm, Normal heart sounds - GI/Abdominal GI/Abdominal exam: Soft. negative: Rebound, Rigid, Tenderness - Rectal Rectal exam: Deferred - exam: Deferred - Extremities Extremities exam: Tenderness, Other (Mild STS to the proximal/lateral aspect of the right index finger, mild erythema present, no induration or fluctuance present, no residual FB is present on examination, FROM of the digit is present without signs of tenosynovitis. No knavel's signs are present on examination.) . negative: Calf tenderness, Pedal edema - Back Back exam: Denies: CVA tenderness (R), CVA tenderness (L) - Neurological Neurological exam: Alert, Normal gait, Oriented X3 - Psychiatric Psychiatric exam: Normal affect, Normal mood - Skin Skin exam: Normal color. negative: Abrasion Type of lesion: negative: abrasion Course Vital Signs 06/07/18 01:11 Temperature 97.7 F Pulse Rate [ 80 Pulse Ox Probe] Respiratory 20 Rate Blood Pressure 143/86 [Left Arm] Pulse Ox 95 - Reevaluation(s) Reevaluation #1: 06/07/18 01:22 Mild celluitis is likely present to the right index finger laterally No evidence for tenosynovitis No knavel's signs present FROM flexion/extension without pain No clinical signs of abscess Will treat with Clindamycin with instructions to return to ED if symptoms worsen. Disposition Disposition: Discharge Clinical Impression: Cellulitis of finger of right hand Disposition: Home, Self-Care Condition: (2) Stable Instructions: Cellulitis (ED) Additional Instructions: Return to ED if your symptoms worsen or if you have any concerns. Cellulitis as directed. Follow-up with your family doctor in 3-5 days as directed. Prescriptions: Clindamycin HCl 300 mg PO QID #27 capsule Forms: Patient Portal Access Time of Disposition: 01:15 Quality - Quality Measures Quality Measures: N/A - Blood Pressure Screening Does Patient Have Any of the Following: No Blood Pressure Classification: Pre-Hypertensive BP Reading Systolic Measurement: 143 Diastolic Measurement: 86 Screening for High Blood Pressure: < Pre-Hypertensive BP, F/U Documented > [ G8950] Pre-Hypertensive Follow-up Interventions: Referral to alternative/primary care provider.
== END 2018-06-07 01:24 | disposition home or self-care (01) ==
LOC: ER 01:08
DX: L03.011 Cellulitis of right finger (principal); Z87.891 Personal history of nicotine dependence
CPT/HCPCS: 99282

== ENCOUNTER 2018-08-09 05:00 | Emergency (ER) | payer MEDICAID ==
[2018-08-09] MEDS ORDERED: DIPHENHYDRAMINE HCL 50 MG/ML VIAL IVP ONE (05:21)
[2018-08-09] MEDS ORDERED: KETOROLAC 30 MG/ML VIAL IVP ONE (05:21)
[2018-08-09] MEDS ORDERED: METOCLOPRAMIDE HCL 10 MG/2 ML VIAL IVP ONE (05:21)
--- NOTE | 2018-08-09 05:29 | Emergency Department Record ---
History of Present Illness - General Chief Complaint: Headache Migraine Stated Complaint: there is something wrong in my head Time Seen by Provider: 08/09/18 05:21 Source: Patient Mode of Arrival: Ambulatory Limitations: No limitations - History of Present Illness Initial Comments: 52 yo male presents to ED for evaluation of a headache x 2 weeks. Patient reports that he has been unable to sleep for the past 2 weeks as well. Patient denies fevers, neck stiffness symptoms, reports "I think there is something wrong with my head, like there is something wrong with my brain". Patient denies anticoagulation medications, denies history of headaches in the past. Patient reports seeing his PCP who is unsure the etiology of his symptoms. MD Complaint: Headache Onset/Timin -: Week(s) Onset Description: Gradual Location: Facial Severity: Moderate Severity scale (1-10): 8 Quality: Aching, Other Consistency: Constant Improves With: Nothing Worsens With: None Context: Other Associated Symptoms: Confusion Other Symptoms: Other Treatments Prior to Arrival: Ibuprofen - Related Data Allergies Allergy/AdvReac Type Severity Reaction Status Date / Time polyethylene glycol 3350 Allergy Severe ANAPHYLAXIS Unverified 06/14/18 15:52 [From [employer]] Travel Screening - Travel/Exposure Within Last 30 Days Have you traveled within the last 30 days?: No - Travel Symptoms Symptom Screening: Headache Review of Systems Constitutional: Denies: Chills, Fever, Malaise, Night sweats Eyes: Denies: Eye discharge, Eye pain, Photophobia ENT: Denies: Congestion, Ear pain, Epistaxis Respiratory: Denies: Cough, Dyspnea Cardiovascular: Denies: Chest pain, Dyspnea on exertion Endocrine: Denies: Fatigue, Heat or cold intolerance Gastrointestinal: Denies: Abdominal pain, Nausea, Vomiting Genitourinary: Denies: Incontinence, Retention Musculoskeletal: Denies: Arthralgia, Back pain Skin: Denies: Bruising, Change in color Neurological: Reports: Headache. Denies: Abnormal gait, Confusion, Seizure Psychiatric: Denies: Anxiety Hematological/Lymphatic: Denies: Anemia, Blood Clots Past Medical History - SOCIAL HISTORY Smoking Status: Former smoker Alcohol Use: None Drug Use: None - RESPIRATORY Hx Respiratory Disorders: No - CARDIOVASCULAR Hx Cardio Disorders: No - NEURO Hx Neuro Disorders: No - GI Hx GI Disorders: Yes Hx Abdominal Pain: Yes (20+ years) Hx Diverticulitis: Yes Hx Irritable Bowel: Yes - Hx Genitourinary Disorders: Yes Hx Kidney Stones: Yes - ENDOCRINE Hx Endocrine Disorders: No Hx Diabetes: No Hx Thyroid Disease: No - MUSCULOSKELETAL Hx Musculoskeletal Disorders: Yes Hx Arthritis: (Having some trouble with R knuckle pain for aprox 6 months) - PSYCH Hx Psych Problems: Yes Hx Anxiety: Yes Hx Depression: Yes Comment:: "I think I have PTSD" - HEMATOLOGY/ONCOLOGY Hx Hematology/Oncology Disorders: No Family Medical History Any Significant Family History?: Yes Family Hx Comment (NOT TO BE USED IN PLACE OF ITEMS BELOW): IBS Hx Cancer: Grandparents Hx Heart Disease: Mother, Grandparents Physical Exam - General General Appearance: Alert, Oriented x3, Cooperative, Mild distress Limitations: No limitations - Head Head exam: Atraumatic, Normocephalic, Normal inspection Head exam detail: negative: Abrasion, Contusion, Costello's sign, General tenderness, Hematoma, Laceration - Eye Eye exam: Normal appearance. negative: Conjunctival injection, Periorbital swelling, Periorbital tenderness, Scleral icterus - ENT Ear exam: negative: Auricular hematoma, Auricular trauma Nasal Exam: negative: Active bleeding, Discharge, Dried blood, Foreign body Mouth exam: negative: Drooling, Laceration, Muffled voice, Tongue elevation - Neck Neck exam: Normal inspection. negative: Meningismus, Tenderness - Respiratory Respiratory exam: Normal lung sounds bilaterally. negative: Rales, Respiratory distress, Rhonchi, Stridor - Cardiovascular Cardiovascular Exam: Regular rate, Normal rhythm, Normal heart sounds - GI/Abdominal GI/Abdominal exam: Soft. negative: Rebound, Rigid, Tenderness - Rectal Rectal exam: Deferred - exam: Deferred - Extremities Extremities exam: Normal inspection. negative: Pedal edema, Tenderness - Back Back exam: Denies: CVA tenderness (R), CVA tenderness (L) - Neurological Neurological exam: Alert, Normal gait, Oriented X3. negative: Motor sensory deficit - Psychiatric Psychiatric exam: Flat affect - Skin Skin exam: Normal color. negative: Abrasion Type of lesion: negative: abrasion Course Vital Signs 08/09/18 05:05 Pulse Rate 82 Respiratory 18 Rate Blood Pressure 149/97 Pulse Ox 97 - Reevaluation(s) Reevaluation #1: 08/09/18 05:26 Patient was seen and examined, no meningeal signs on examination. Will obtain CT imaging of the head, laboratory studies, administer reglan/ benadryl/toradol for his headache symptoms and reassess. No clinical/historical evidence for ruptured aneurysm, no clinical/historical symptoms that are c/w meningitis. Reevaluation #2: 08/09/18 05:58 Laboratory studies were reviewed and are grossly unremarkable for an acute process. Reevaluation #3: 08/09/18 06:38 CT Brain: No acute process Patient was updated on all results, reassessed and reports that his headache symptoms are down to 2/10 from 10/17. Patient is moving his neck spontaneously without pain symptoms, no clinical evidence for meningitis or SAH based on my examination. LP is not felt to be indicated at this time base on my examination. I did discuss this with the patient, and he is in agreement with not performing LP at this time. Patient was instructed to return to the ED for re-evaluation if his headache symptoms worsen. Medical Decision Making - Lab Data Result diagrams: 08/09/18 05:20 08/09/18 05:20 Disposition Disposition: Discharge Clinical Impression: Headache Qualifiers: Headache type: unspecified Headache chronicity pattern: acute headache Intractability: not intractable Qualified Code(s): R51 - Headache Disposition: Home, Self-Care Condition: (2) Stable Instructions: Acute Headache (ED) Additional Instructions: Return to ED if your symptoms worsen or if you have any concerns. Follow-up with your family doctor in 1-3 days as directed. Forms: Patient Portal Access Time of Disposition: 06:40 Quality - Quality Measures Quality Measures: N/A - Blood Pressure Screening Does Patient Have Any of the Following: No Blood Pressure Classification: Hypertensive Reading Systolic Measurement: 149 Diastolic Measurement: 97 Screening for High Blood Pressure: < First Hypertensive BP, F/U Documented > [ G8950] First Hypertensive Follow-up Interventions: Referral to alternative/primary care provider.
[2018-08-09] MEDS ORDERED: 0.9 % SODIUM CHLORIDE 1000ML 1,000 ML IV SCH (05:30)
[2018-08-09 05:42] LABS: EOS % 5.4 % (0-6); GRAN % 49.7 % (47-80); HEMATOCRIT 50.6 % (42.0-52.0); HEMOGLOBIN 16.7 gm/dl (14.0-18.0); LYMPH % 30.4 % (16-45); MEAN CELL VOLUME 89.7 fl (81-97); MEAN CORPUSCULAR HEMOGLOBIN 29.6 pg (27-33); MEAN PLATELET VOLUME 9.4 fl (7.4-10.4); MONO % 13.5 % (0-9); PLATELET COUNT 318 K/uL (130-400); RED BLOOD COUNT 5.64 M/uL (4.40-5.70); RED CELL DISTRIBUTION WIDTH 13.5 % (11.5-14.5); WHITE BLOOD COUNT W/O DIFF 7.2 K/uL (4.2-12.2)
[2018-08-09 05:52] LABS: BLOOD UREA NITROGEN 17 mg/dL (6-20); EST GLOMERULAR FILTRATION RATE > 60 mL/min
[2018-08-09 05:53] LABS: TOTAL PROTEIN 6.5 g/dL (6.6-8.7)
[2018-08-09 05:55] LABS: GLUCOSE,RANDOM 96 mg/dL (74-109)
[2018-08-09 05:57] LABS: ALB/GLOB RATIO 1.4 (1.1-1.8); ALBUMIN 3.8 g/dL (4.0-5.0); ALT/SGPT 20 U/L (<41); AST/SGOT 19 U/L (10.0-50.0)
[2018-08-09 05:58] LABS: ALKALINE PHOSPHATASE 64 U/L (40-129)
--- NOTE | 2018-08-11 08:03 | CT SCAN REPORT ---
EXAM: NONCONTRAST CT OF THE BRAIN HISTORY: HEADACHE, DIZZINESS, TINNITUS, CONFUSION FOR TWO WEEKS. TECHNIQUE: Noncontrast CT of the brain was obtained. Comparison: None. FINDINGS: No midline shift, mass effect, or abnormal intra or extraaxial fluid collection. No cerebral edema, focal mass, or intracranial hemorrhage detected. The ventricle sizes are within normal limits. No evidence of a displaced calvarial fracture. The visualized paranasal sinuses and mastoid air cells are clear. 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 IMPRESSION: ABOVE. JOB NUMBER: [id number] [facility]
== END 2018-08-09 07:02 | disposition home or self-care (01) ==
LOC: ER 05:00
DX: R51 Headache (principal); R41.0 Disorientation, unspecified; R42 Dizziness and giddiness; R53.83 Other fatigue; Z87.891 Personal history of nicotine dependence
CPT/HCPCS: 70450; 80053; 85025; 96361; 96374; 96375; 99284; J1200; J1885; J2765; J7030

== ENCOUNTER 2019-01-23 19:41 | Emergency (ER) | payer MEDICAID ==
--- NOTE | 2019-01-23 19:53 | Emergency Department Record ---
History of Present Illness - General Chief complaint: ENT Stated complaint: RT NEAR PAIN Time Seen by Provider: 01/23/19 19:45 Source: Patient Mode of Arrival: Ambulatory Limitations: No limitations - History of Present Illness Initial comments: 53 yo male presents to ED for evaluation of right sided ringing in the ear for several weeks, developed discomfort in the ear earlier today and was concerned about possible infection. Patient denies dental pain symptoms, denies facial numbness, and denies difficulty smiling/wrinkling his forehead. Patient denies change in vision, denies focal weakness on examination. Patient is unsure if his symptoms may be due to TMJ or possible ear infection. MD complaint: Ear pain, Other (tinnitis) Onset/Timin -: Week(s) Location: R ear Severity: Moderate Consistency: Constant Improves with: None Worsens with: None Associated Symptoms: Tinnitus - Related Data Home Medications Medication Instructions Recorded Confirmed Last Taken No Home Med [NO HOME MEDS] 01/23/19 01/23/19 Unknown Allergies Allergy/AdvReac Type Severity Reaction Status Date / Time polyethylene glycol 3350 Allergy Severe ANAPHYLAXIS Unverified 06/14/18 15:52 [From [email or web address]] Travel Screening - Travel/Exposure Within Last 30 Days Have you traveled within the last 30 days?: No - Travel/Exposure Within Last Year Have you traveled outside the [place] in the last year?: No - Additonal Travel Details Have you been exposed to anyone with a communicable illness?: No - Travel Symptoms Symptom Screening: None Review of Systems Constitutional: Denies: Chills, Fever, Malaise, Night sweats Eyes: Denies: Eye discharge, Eye pain ENT: Reports: Ear pain, Other (Tinnitis right ear). Denies: Congestion, Epistaxis Respiratory: Denies: Cough, Dyspnea Cardiovascular: Denies: Chest pain, Dyspnea on exertion Endocrine: Denies: Fatigue, Heat or cold intolerance Gastrointestinal: Denies: Abdominal pain, Nausea, Vomiting Genitourinary: Denies: Incontinence, Retention Musculoskeletal: Denies: Arthralgia, Back pain Skin: Denies: Bruising, Change in color, Change in hair/nails, Rash Neurological: Denies: Abnormal gait, Confusion, Headache, Seizure Psychiatric: Denies: Anxiety Hematological/Lymphatic: Denies: Anemia, Blood Clots Past Medical History - SOCIAL HISTORY Smoking Status: Former smoker - RESPIRATORY Hx Respiratory Disorders: No - CARDIOVASCULAR Hx Cardio Disorders: No - NEURO Hx Neuro Disorders: No - GI Hx GI Disorders: Yes Hx Abdominal Pain: Yes (20+ years) Hx Diverticulitis: Yes Hx Irritable Bowel: Yes - Hx Genitourinary Disorders: Yes Hx Kidney Stones: Yes - ENDOCRINE Hx Endocrine Disorders: No Hx Diabetes: No Hx Thyroid Disease: No - MUSCULOSKELETAL Hx Musculoskeletal Disorders: Yes Hx Arthritis: (Having some trouble with R knuckle pain for aprox 6 months) - PSYCH Hx Psych Problems: Yes Hx Anxiety: Yes Hx Depression: Yes Comment:: "I think I have PTSD" - HEMATOLOGY/ONCOLOGY Hx Hematology/Oncology Disorders: No Family Medical History Any Significant Family History?: No Family Hx Comment (NOT TO BE USED IN PLACE OF ITEMS BELOW): IBS Hx Cancer: Grandparents Hx Heart Disease: Mother, Grandparents Physical Exam - General General Appearance: Alert, Oriented x3, Cooperative, No acute distress Limitations: No limitations - Head Head exam: Atraumatic, Normocephalic, Normal inspection Head exam detail: negative: Abrasion, Contusion, Costello's sign, General tenderness, Hematoma, Laceration - Eye Eye exam: Normal appearance. negative: Conjunctival injection, Periorbital swelling, Periorbital tenderness, Scleral icterus - ENT ENT exam: TM's normal bilaterally Ear exam: negative: Auricular hematoma, Auricular trauma Nasal Exam: negative: Active bleeding, Discharge, Dried blood, Foreign body Mouth exam: negative: Drooling, Laceration, Muffled voice, Tongue elevation - Neck Neck exam: Normal inspection. negative: Meningismus, Tenderness - Respiratory Respiratory exam: Normal lung sounds bilaterally. negative: Rales, Respiratory distress, Rhonchi, Stridor - Cardiovascular Cardiovascular Exam: Regular rate, Normal rhythm, Normal heart sounds - GI/Abdominal GI/Abdominal exam: Soft. negative: Rebound, Rigid, Tenderness - Rectal Rectal exam: Deferred - exam: Deferred - Extremities Extremities exam: Normal inspection. negative: Calf tenderness, Pedal edema, Tenderness - Back Back exam: Denies: CVA tenderness (R), CVA tenderness (L) - Neurological Neurological exam: Alert, CN II-XII intact, Normal gait, Oriented X3, Other (No focal deficits on examination, no evidence for acute CVA or Richard's palsy on examination). negative: Motor sensory deficit - Psychiatric Psychiatric exam: Normal affect, Normal mood - Skin Skin exam: Normal color. negative: Abrasion Type of lesion: negative: abrasion Course Vital Signs 01/23/19 19:46 Temperature 98.4 F Pulse Rate [ 64 Pulse Ox Probe] Respiratory 20 Rate Blood Pressure 138/88 [Left Arm] Pulse Ox 98 - Reevaluation(s) Reevaluation #1: 01/23/19 20:00 Patient was seen and examined No evidence for acute CVA, no Richard's palsy No evidence for otitis media or TM abnormality ? TMJ Will refer the patient to Dr. Del Valle for further evaluation. Patient appears stable for discharge at this time. Disposition Disposition: Discharge Clinical Impression: Tinnitus, right ear Disposition: Home, Self-Care Condition: (2) Stable Instructions: Tinnitus (ED) Additional Instructions: Return to ED if your symptoms worsen or if you have any concerns. Call Dr. Del Valle to follow-up with in 3-5 days directed. Referrals: Abundio Del Valle D.O. [DOCTOR OF OSTEOPATH] - Forms: Patient Portal Access Time of Disposition: 19:52 Quality - Quality Measures Quality Measures: N/A - Blood Pressure Screening Does Patient Have Any of the Following: No Blood Pressure Classification: Pre-Hypertensive BP Reading Systolic Measurement: 138 Diastolic Measurement: 88 Screening for High Blood Pressure: < Pre-Hypertensive BP, F/U Documented > [G8950] Pre-Hypertensive Follow-up Interventions: Referral to alternative/primary care provider.
== END 2019-01-23 20:00 | disposition home or self-care (01) ==
LOC: ER 19:41
DX: H93.11 Tinnitus, right ear (principal); F17.210 Nicotine dependence, cigarettes, uncomplicated
CPT/HCPCS: 99282